=== PATIENT | female | born 1985 | race Caucasian/White ===

== ENCOUNTER 2018-08-13 12:09 | Emergency (ER) | payer OTHER ==
[~2018-08-13] VITALS: Ht 167.6 cm; Wt 89.8 kg
[2018-08-13 12:14] VITALS: BP 124/56
--- NOTE | 2018-08-13 14:39 | NUR ---
PATIENT AMBULATED TO ER CHAIR E.
[2018-08-13] MEDS ORDERED: predniSONE 20 MG TAB PO ONE (14:55)
--- NOTE | 2018-08-13 15:05 | NUR ---
PT IS A 32 Y/O FEMALE WHO PRESENTS TO THE ED C/O RASH. PT STATES THAT IT STARTED X3 DAYS AGO WITH ITCHING, DENIES PAIN AT THIS TIME. NOTED RED RASH WITH SWELLING ON FACE, BILATERAL ARMS, STOMACH. PT DENIES CP, SOB, N/V/D. PT AWAKE AND ALERT, RR EVEN/UNLABORED. PT REPOSITIONED FOR COMFORT, BED IN LOWEST POSITION. ER PROVIDER NOTIFIED. WILL CONTINUE TO MONITOR. PMH: NONE RX: NONE
[2018-08-13 15:23] VITALS: BP 122/72
--- NOTE | 2018-08-13 15:25 | NUR ---
Patient discharged with v/s stable. Written and verbal after care instructions given and explained. Patient alert, oriented and verbalized understanding of instructions. Ambulatory with steady gait. All questions addressed prior to discharge. ID band removed. Patient advised to follow up with PMD. Rx of PREDNISONE, BENADRYL given. Patient educated on indication of medication including possible reaction and side effects. Opportunity to ask questions provided and answered.
== END 2018-08-13 15:25 | disposition home or self-care (01) ==
LOC: MED 12:09
DX: R21 Rash and other nonspecific skin eruption (principal); L29.9 Pruritus, unspecified
CPT/HCPCS: 99283; J7512; Q0163